=== PATIENT | female | born 1945 | race Caucasian/White ===

== ENCOUNTER → 2024-03-07 | Outpatient (REF) | payer MEDICARE | LOC: US 14:51 | PROVIDERS: ATTEND Nurse Practitioner Family | DX: E02 Subclinical iodine-deficiency hypothyroidism (principal) | CPT/HCPCS: 76536 ==

== ENCOUNTER → 2024-03-26 | Outpatient (REF) | payer MEDICARE | LOC: US 08:00 | PROVIDERS: ATTEND Nurse Practitioner Family | DX: E04.2 Nontoxic multinodular goiter (principal) | CPT/HCPCS: 10005; 88112; 88172; 88173; 88305 ==